=== PATIENT | female | born 1995 | race Caucasian/White ===

== ENCOUNTER 2018-02-13 13:47 | Emergency (ER) | payer SELFPAY ==
[~2018-02-13] VITALS: Ht 167.6 cm; Wt 60.0 kg
[~2018-02-13 13:47] MED LIST: KEFLEX250 MG/5 M OR
[2018-02-13] MEDS ORDERED: TAM75CAP PO (17:21)
[2018-02-13 17:25] VITALS: BP 134/78
== END 2018-02-13 17:25 | disposition home or self-care (01) | DRG 153 ==
LOC: ED 13:47
DX: J11.1 Influenza due to unidentified influenza virus with other respiratory manifestations (principal)

== ENCOUNTER 2018-07-17 19:14 | Emergency (ER) | payer OTHER ==
[~2018-07-17] VITALS: Ht 162.6 cm; Wt 61.4 kg
[~2018-07-17 19:14] MED LIST changes: +TAM75CAP PO
[2018-07-17 19:21] VITALS: BP 132/76
== END 2018-07-17 19:47 ==
LOC: ED 19:14
DX: O26.893 Other specified pregnancy related conditions, third trimester (principal); R10.30 Lower abdominal pain, unspecified; Z3A.35 35 weeks gestation of pregnancy

== ENCOUNTER 2020-11-26 10:11 | Emergency (ER) | payer MEDICAID ==
[~2020-11-26] VITALS: Ht 162.6 cm; Wt 51.0 kg
[2020-11-26] MEDS ORDERED: CLINDAMYCIN300 M1 PO (10:36)
[2020-11-26 10:40] VITALS: BP 126/84
== END 2020-11-26 10:40 | disposition home or self-care (01) ==
LOC: ED 10:11
DX: K03.81 Cracked tooth (principal)

== ENCOUNTER 2022-06-03 15:19 | Emergency (ER) | payer OTHER ==
[~2022-06-03] VITALS: Ht 162.6 cm; Wt 59.0 kg
[~2022-06-03 15:19] MED LIST changes: +CLINDAMYCIN300 M1 PO
[2022-06-03 16:10] VITALS: BP 134/87
[2022-06-03 16:15] VITALS: BP 118/88
[2022-06-03 16:30] VITALS: BP 112/77
[2022-06-03 16:45] VITALS: BP 116/85
[2022-06-03 16:59] LABS: URINE BILIRUBIN - DIPSTICK NEGATIVE (NEGATIVE); URINE BLOOD DIPSTICK SMALL (NEGATIVE); URINE COLOR YELLOW; URINE GLUCOSE - DIPSTICK NEGATIVE (NEGATIVE); URINE KETONE NEGATIVE (NEGATIVE); URINE LEUK ESTERASE NEGATIVE (NEGATIVE); URINE PROTEIN - DIPSTICK NEGATIVE (NEG-TRACE); URINE SPECIFIC GRAVITY 1.025; URINE UROBILINOGEN - DIPSTICK 0.2 E.U./dL (0.2)
[2022-06-03 17:00] VITALS: BP 116/88
[2022-06-03 17:00] LABS: BASO% 0.7 % (0-3); EOS% 3.8 % (0-8); HEMATOCRIT 42.2 % (37.0-47.0); HEMOGLOBIN 13.8 g/dl (12.0-16.0); IMMATURE GRANULOCYTES 0.1 % (0.0-5.0); LYMPH% 22.7 % (15-41); MEAN CELL VOLUME 91.9 fL CALC (80.0-100.0); MEAN CORPUSCULAR HGB 30.1 pG CALC (26.0-32.0); MEAN CORPUSCULAR HGB CONC 32.7 g/dL CAL (32.0-36.0); MONO% 8.7 % (2-13); NEUT# 4.89 thou/uL (2.00-7.15); RED BLOOD COUNT 4.59 mill/uL (4.20-5.60); RED CELL DISTRI WIDTH 12.3 % (11.5-15.5)
[2022-06-03 17:05] LABS: URINE NITRITE - DIPSTICK NEGATIVE (Negative)
[2022-06-03 17:15] LABS: URINE BACTERIA MODERATE hpf; URINE SQUAMOUS EPITHELIAL CELL MANY EPI/hpf (0-FEW); URINE TRANSITIONAL EPI. CELLS RARE hpf
[2022-06-03 17:17] LABS: ALBUMIN 4.6 g/dL (3.2-5.0); ANION GAP 12 (6-22 (CALC)); BILIRUBIN, TOTAL 0.4 mg/dL (0.02-1.3); BUN 6 mg/dL (7-17); BUN/CREATININE RATIO 10 (12-20 (CALC)); CARBON DIOXIDE 23 mmol/l (22-30); CHLORIDE 105 mmol/l (95-108); CREATININE 0.6 mg/dL (0.5-1.0); GFR FOR AFR.AMER. > 60 ML/MIN (>=60 (CALC)); GFR OTHER RACES > 60 ML/MIN (>=60 (CALC)); POTASSIUM 4.2 mmol/l (3.5-5.1); SGOT/AST 23 u/l (14-36); SODIUM 136 mmol/l (137-146); TOTAL PROTEIN 7.5 g/dL (6.3-8.2)
[2022-06-03 17:18] VITALS: BP 116/88
[2022-06-03 17:18] LABS: ALKALINE PHOSPHATASE 52 u/l (38-126)
== END 2022-06-03 17:28 | disposition home or self-care (01) ==
LOC: ED 15:19
PROVIDERS: Emergency Medicine
DX: R10.9 Unspecified abdominal pain (principal)